=== PATIENT | male | born 1980 | race African-American/Black ===

== ENCOUNTER → 2017-05-12 | Outpatient (CLI) | payer OTHER ==
[2017-05-12 14:09] LABS: PROLACTIN 5.4 NG/ML (2.1-17.7)
[2017-05-12 14:10] LABS: ESTRADIOL 30.6 PG/ML (<39.8); LUTEINIZING HORMONE 3.4 mIU/mL (1.5-9.3)
[2017-05-12 14:11] LABS: FOLLICLE STIMULATING HORMONE 7.3 mIU/mL (1.4-18.1)
[2017-05-14 00:07] LABS: SEX HORMONE BINDING GLOBULIN 18.8 nmol/L (16.5-55.9)
== END ==
LOC: M SMT 08:50
PROVIDERS: ATTEND Nurse Practitioner Family
DX: N46.9 Male infertility, unspecified (principal)
CPT/HCPCS: 36415; 82670; 83001; 83002; 84146; 84402; 84403; G0463

== ENCOUNTER → 2017-05-14 | Outpatient (REF) | payer OTHER ==
[2017-05-14 10:44] LABS: SPERM ABNORMAL FORMS OTHER (SPECIFIY)
[2017-05-14 10:45] LABS: % NORMAL FORMS < 4 % (>=4); IMMOTILITY 84 %; NON PROGRESSIVE MOTILITY (c) 6 %; PROGRESSIVE MOTILITY (a) 10 % (>=32); TOTAL MOTILITY 16 % (>=40)
[2017-05-14 10:46] LABS: SPERM# 159.5 M/Ejac (>=39); TOTAL FUNCTIONAL 1.2 M/Ejac.; TOTAL PROGRESSIVE SPERM 15.8 M/Ejac.
== END ==
LOC: M SMT 10:04
PROVIDERS: ATTEND Nurse Practitioner Family
DX: N46.9 Male infertility, unspecified (principal)